=== PATIENT | male | born 1975 | race African-American/Black ===

== ENCOUNTER 2017-01-06 10:57 | Emergency (ER) | payer OTHER ==
--- NOTE | 2017-01-06 13:17 | Emergency Department Report ---
Entered by MANJINDER RODRIGUEZ, acting as scribe for CINTHIA SIGNH NP. Chief Complaint: Back Pain/Injury Stated Complaint: BACK PAIN Time Seen by Provider: 01/06/17 13:07 - HPI History of Present Illness: Patient present to the ED c/o of back pain for 2 weeks. Pain is worsened with movement. Reports urination frequency and urgency at nightt. Denies back injury , dysuria, and urinary incontinence. Reports applying ice with no relief. He notes seeing PCP 1 month ago and recieved a steroid shot that gave mild relief for about 2 weeks. NKDA. - ROS Review of Systems: All systems are negative unless stated in HPI above. - Exam Vital Signs: Vital Signs 01/06/17 12:45 Temperature 98.4 F Pulse Rate 70 Respiratory 16 Rate Blood Pressure 154/111 O2 Sat by Pulse 100 Oximetry Physical Exam: General: alert and oriented x 3 MSE screening note: Focused history and physical exam performed. Due to findings the following was ordered: 07/01 PAIN LUMBAR SAW PCP HAS CT ORTHO MD APPNT 5-3 HAD GOT STEROID INJ WORE OFF SINCE 07-07 NO MEDS AT HOME POS STR LEG LIFT BP INC W PAIN. NO HX BP ED Medical Decision Making - Medical Decision Making Patient seen by provider in triage area. An UA will be ordered for the patient. ED Disposition for MSE Condition: Stable This documentation as recorded by the scribe,MANJINDER RODRIGUEZ,accurately reflects the service I personally performed and the decisions made by me,CINTHIA ZAMORA NP.
[2017-01-06 14:35] LABS: Bilirubin,Urine NEG (Negative); Blood,Urine NEG (Negative); Ketones,Urine NEG (Negative); Leukocyte Esterase,Urine NEG (Negative); Mucus,Urine FEW /HPF; Nitrite,Urine NEG (Negative); Protein,Urine <15 mg/dL mg/dL (Negative); Urobilinogen,Urine < 2.0 mg/dL (<2.0)
[2017-01-06] MEDS ORDERED: MOTRIN PO ONE (15:16)
--- NOTE | 2017-01-06 15:20 | Emergency Department Report ---
ED Back Pain/Injury HPI - General Chief Complaint: Back Pain/Injury Stated Complaint: BACK PAIN Time Seen by Provider: 01/06/17 14:17 Source: patient Limitations: No Limitations - History of Present Illness Initial Comments: this is ae 41-year-old male presented with a chronic lower back pain that was diagnosed with spinal stenosis in May 2017. Patient presents to the emergency room now with unable to control pain. Patient describes pain as throbbing and aching. Patient manages pain with a steroid injections but stated that does not have an orthopedic doctor currently due to his insurance. Patient denies any numbness or tingling sensation in her cavities. Denies any bladder stability. Denies CP, SOB, trauma, headache. Patient stated manages back pain with his PCP and is in the process of getting a orthopedic. Patient stated that the PCP has ordered x-rays and MRI. He stated that a MRI shows spinal stenosis. Patient has no known drug allergies. Patient does not appear toxic or ill appearance. MD Complaint: back pain (chronic) -: Gradual Similar Symptoms Previously: Yes (chronic) Severity: severe Severity scale (0 -10): 10 Quality: stabbing Consistency: constant Improves With: immobilization, other (rest) Worsens With: other (steroid injection) Associated Symptoms: denies other symptoms. denies: confusion, weakness, chest pain, numbness, difficulty walking, cough, difficulty urinating, diaphoresis, incontinence, fever/chills, constipation, headaches, abdominal pain, loss of appetite, malaise, nausea/vomiting, rash, seizure, shortness of breath, syncope Treatments Prior to Arrival: NSAIDS, prescription analgesics - Related Data Previous Rx's Medication Instructions Recorded Last Taken Type Amoxicillin/K Clav Tab [Augmentin 1 tab PO Q12HR #20 tab 06/15/15 Unknown Rx 875 mg] Oxycodone HCl/Acetaminophen 1 each PO Q4-6H PRN #20 tablet 06/15/15 Unknown Rx [Percocet 10/325 mg] predniSONE [Deltasone] 20 mg PO TID #12 tab 06/15/15 Unknown Rx Naproxen [Naprosyn TAB] 500 mg PO PRN PRN #20 tablet 01/06/17 Unknown Rx Prednisone [predniSONE 5 mg (6-Day 5 mg PO .TAPER #1 tab.ds.pk 01/06/17 Unknown Rx Pack, 21 Tabs)] traMADol [Ultram 50 MG tab] 50 mg PO Q6HR PRN #15 tablet 01/06/17 Unknown Rx Allergies Allergy/AdvReac Type Severity Reaction Status Date / Time No Known Allergies Allergy Unverified 06/15/15 12:04 ED Review of Systems ROS: Stated complaint: BACK PAIN Other details as noted in HPI Constitutional: denies: chills, fever Eyes: denies: eye pain, eye discharge, vision change ENT: denies: ear pain, throat pain Respiratory: denies: cough, shortness of breath, wheezing Cardiovascular: denies: chest pain, palpitations Endocrine: no symptoms reported Gastrointestinal: denies: abdominal pain, nausea, diarrhea Genitourinary: denies: urgency, dysuria Musculoskeletal: denies: back pain, joint swelling, arthralgia Skin: denies: rash, lesions Neurological: denies: headache, weakness, paresthesias Psychiatric: denies: anxiety, depression Hematological/Lymphatic: denies: easy bleeding, easy bruising ED Past Medical Hx - Past Medical History Previous Medical History?: No - Surgical History Past Surgical History?: No - Social History Smoking Status: Never Smoker Substance Use Type: None - Medications Home Medications: Home Medications Medication Instructions Recorded Confirmed Last Taken Type Amoxicillin/K Clav Tab [Augmentin 1 tab PO Q12HR #20 tab 06/15/15 Unknown Rx 875 mg] Oxycodone HCl/Acetaminophen 1 each PO Q4-6H PRN #20 tablet 06/15/15 Unknown Rx [Percocet 10/325 mg] predniSONE [Deltasone] 20 mg PO TID #12 tab 06/15/15 Unknown Rx Naproxen [Naprosyn TAB] 500 mg PO PRN PRN #20 tablet 01/06/17 Unknown Rx Prednisone [predniSONE 5 mg (6-Day 5 mg PO .TAPER #1 tab.ds.pk 01/06/17 Unknown Rx Pack, 21 Tabs)] traMADol [Ultram 50 MG tab] 50 mg PO Q6HR PRN #15 tablet 01/06/17 Unknown Rx ED Physical Exam - General Limitations: No Limitations General appearance: alert, in no apparent distress - Head Head exam: Present: atraumatic, normocephalic, normal inspection - Eye Eye exam: Present: normal appearance, PERRL, EOMI - ENT ENT exam: Present: normal exam, normal orophraynx, mucous membranes moist, TM's normal bilaterally - Neck Neck exam: Present: normal inspection, full ROM. Absent: tenderness, lymphadenopathy - Respiratory Respiratory exam: Present: normal lung sounds bilaterally. Absent: respiratory distress - Cardiovascular Cardiovascular Exam: Present: regular rate, normal rhythm. Absent: systolic murmur, diastolic murmur, rubs, gallop - GI/Abdominal GI/Abdominal exam: Present: soft, normal bowel sounds. Absent: distended, tenderness, guarding, rebound, rigid, hyperactive bowel sounds, hypoactive bowel sounds, organomegaly - Rectal Rectal exam: Present: deferred - Extremities Exam Extremities exam: Present: normal inspection, full ROM, normal capillary refill. Absent: tenderness, pedal edema, joint swelling, calf tenderness - Back Exam Back exam: Present: normal inspection, full ROM, tenderness. Absent: CVA tenderness (R), CVA tenderness (L), muscle spasm, paraspinal tenderness, vertebral tenderness, rash noted - Expanded Back Exam Expanded Back exam: Absent: saddle anesthesia Back exam: Negative Straight Leg Raising: Right, Left - Neurological Exam Neurological exam: Present: alert, oriented X3, CN II-XII intact - Psychiatric Psychiatric exam: Present: normal affect, normal mood - Skin Skin exam: Present: warm, dry, intact, normal color. Absent: rash ED Course Vital Signs 01/06/17 01/06/17 01/06/17 12:45 15:20 15:38 Temperature 98.4 F Pulse Rate 70 Respiratory 16 18 Rate Blood Pressure 154/111 Blood Pressure 120/80 [Left] O2 Sat by Pulse 100 Oximetry 01/06/17 15:46 Temperature 97.9 F Pulse Rate 71 Respiratory 18 Rate Blood Pressure Blood Pressure 143/94 [Left] O2 Sat by Pulse 100 Oximetry Vital Signs 01/06/17 01/06/17 12:45 15:20 Temperature 98.4 F Pulse Rate 70 Respiratory 16 Rate Blood Pressure 154/111 Blood Pressure 120/80 [Left] O2 Sat by Pulse 100 Oximetry - Reevaluation(s) Reevaluation #1: 01/06/17 15:39 Solu-Medrol IM. Patient tolerated well. No signs of distress noted. Reevaluation #2: 01/06/17 15:48 Patient stated back pain level is now a 6/10. "Feel much better" ED Medical Decision Making - Medical Decision Making Ed course: 41 year old male presents with chronic lower back pain 1- Solu-Medrol IM. Patient tolerated well with no signs of any distress 2- ibuprofen 600 mg by mouth. 3-instructed the patient to follow up with the orthopedic doctor 3-5 days. 4- at this time the patient is nontoxic in appearance. 5- understands discharge plan and agrees. No further questions noted. Critical care attestation.: If time is entered above; I have spent that time in minutes in the direct care of this critically ill patient, excluding procedure time. ED Disposition Clinical Impression: Back pain, chronic Qualifiers: Back pain location: back pain in other location Qualified Code(s): M54.9 - Dorsalgia, unspecified Spinal stenosis Qualifiers: Spinal region: unspecified Qualified Code(s): M48.00 - Spinal stenosis, site unspecified Disposition: DISCHARGED TO HOME OR SELFCARE Is pt being admited?: No Does the pt Need Aspirin: No Condition: Stable Instructions: Corticosteroids (By mouth), Naproxen (By mouth), Tramadol (By mouth), Back Pain (ED) Additional Instructions: Please follow up with your primary care doctor in 3-5 days. Please see an orthopedic doctor in 3-5 days. Did not take tramadol while using any heavy machinery. If symptoms worsen such as bladder stability, chest pain, shortness of breath, numbness or tingling, nausea vomiting's report back to emergency room. Please take naproxen as ordered, if no relief please take tramadol as prescribed Is taking prednisone Enrique as prescribed. Prescriptions: Naproxen [Naprosyn TAB] 500 mg PO PRN PRN #20 tablet PRN Reason: Pain Prednisone [predniSONE 5 mg (6-Day Pack, 21 Tabs)] 5 mg PO .TAPER #1 tab.ds.pk traMADol [Ultram 50 MG tab] 50 mg PO Q6HR PRN #15 tablet PRN Reason: Pain Referrals: PRIMARY CARE, [Primary Care Provider] - 3-5 Days [facility] [Outside] - 3-5 Days [facility] [Outside] - 3-5 Days SAIRA BENÍTEZ MD [Staff Physician] - 3-5 Days Forms: Work/School Release Form(ED)
[2017-01-06 15:47] VITALS: BP 143/94
== END 2017-01-06 15:56 | disposition home or self-care (01) ==
LOC: ED 10:57
DX: M54.9 Dorsalgia, unspecified (principal); M48.00 Spinal stenosis, site unspecified; G89.29 Other chronic pain
CPT/HCPCS: 81001; 96372; 99283; J2920

== ENCOUNTER 2018-12-28 10:19 | Emergency (ER) | payer OTHER ==
[2018-12-28 10:40] VITALS: BP 133/106
[2018-12-28] MEDS ORDERED: DELTASONE PO ONE (13:36)
[2018-12-28] MEDS ORDERED: TORADOL IM ONE (13:36)
--- NOTE | 2018-12-28 13:39 | Emergency Department Report ---
ED Back Pain/Injury HPI - General Chief Complaint: Back Pain/Injury Stated Complaint: LOWER BACK PAIN Time Seen by Provider: 12/28/18 12:35 Source: patient Limitations: No Limitations - History of Present Illness Initial Comments: Patient is a 43-year-old male with history of chronic back pain who presents to ED complaining of worsening lower back pain times this month. Patient states in 2012 he had an MRI done and has injections steroid O by orthopedic doctor. Patient states he got better and states that in the past couple of years the pain has gotten worse. Patient denies any recent injury or trauma falls, dysuria,. MD Complaint: back pain -: month(s) Similar Symptoms Previously: Yes Quality: tingling Consistency: intermittent Worsens With: movement, sitting upright Associated Symptoms: denies: confusion, weakness, numbness, incontinence, fever/chills, nausea/vomiting, seizure - Related Data Previous Rx's Medication Instructions Recorded Last Taken Type Amoxicillin/K Clav Tab [Augmentin 1 tab PO Q12HR #20 tab 06/15/15 Unknown Rx 875 mg] Oxycodone HCl/Acetaminophen 1 each PO Q4-6H PRN #20 tablet 06/15/15 Unknown Rx [Percocet 10/325 mg] predniSONE [Deltasone] 20 mg PO TID #12 tab 06/15/15 Unknown Rx Naproxen [Naprosyn TAB] 500 mg PO PRN PRN #20 tablet 01/06/17 Unknown Rx Prednisone [predniSONE 5 mg (6-Day 5 mg PO .TAPER #1 tab.ds.pk 01/06/17 Unknown Rx Pack, 21 Tabs)] traMADol [Ultram 50 MG tab] 50 mg PO Q6HR PRN #15 tablet 12/28/18 Unknown Rx Allergies Allergy/AdvReac Type Severity Reaction Status Date / Time No Known Allergies Allergy Unverified 06/15/15 12:04 ED Review of Systems ROS: Stated complaint: LOWER BACK PAIN Other details as noted in HPI Comment: All other systems reviewed and negative ED Past Medical Hx - Past Medical History Previous Medical History?: Yes Hx Hypertension: Yes - Surgical History Past Surgical History?: No - Social History Smoking Status: Never Smoker Substance Use Type: None - Medications Home Medications: Home Medications Medication Instructions Recorded Confirmed Last Taken Type Amoxicillin/K Clav Tab [Augmentin 1 tab PO Q12HR #20 tab 06/15/15 Unknown Rx 875 mg] Oxycodone HCl/Acetaminophen 1 each PO Q4-6H PRN #20 tablet 06/15/15 Unknown Rx [Percocet 10/325 mg] predniSONE [Deltasone] 20 mg PO TID #12 tab 06/15/15 Unknown Rx Naproxen [Naprosyn TAB] 500 mg PO PRN PRN #20 tablet 01/06/17 Unknown Rx Prednisone [predniSONE 5 mg (6-Day 5 mg PO .TAPER #1 tab.ds.pk 01/06/17 Unknown Rx Pack, 21 Tabs)] traMADol [Ultram 50 MG tab] 50 mg PO Q6HR PRN #15 tablet 12/28/18 Unknown Rx ED Physical Exam - General Limitations: No Limitations General appearance: alert, in no apparent distress - Head Head exam: Present: atraumatic, normocephalic - Eye Eye exam: Present: normal appearance - ENT ENT exam: Present: mucous membranes moist - Neck Neck exam: Present: normal inspection - Respiratory Respiratory exam: Present: normal lung sounds bilaterally. Absent: respiratory distress - Cardiovascular Cardiovascular Exam: Present: regular rate, normal rhythm. Absent: systolic murmur, diastolic murmur, rubs, gallop - GI/Abdominal GI/Abdominal exam: Present: soft, normal bowel sounds - Rectal Rectal exam: Present: deferred - Extremities Exam Extremities exam: Present: normal inspection - Back Exam Back exam: Present: normal inspection - Neurological Exam Neurological exam: Present: alert, oriented X3 - Psychiatric Psychiatric exam: Present: normal affect, normal mood - Skin Skin exam: Present: warm, dry, intact, normal color. Absent: rash ED Course Vital Signs 12/28/18 12/28/18 12/28/18 10:40 10:43 13:47 Temperature 98.7 F 98.7 F Pulse Rate 98 H 98 H Respiratory 16 16 18 Rate Blood Pressure 133/106 Blood Pressure 133/106 [Left] O2 Sat by Pulse 100 99 Oximetry 12/28/18 14:06 Temperature Pulse Rate Respiratory 18 Rate Blood Pressure Blood Pressure [Left] O2 Sat by Pulse Oximetry ED Medical Decision Making - Medical Decision Making 43-year-old male presents with lumbar radiculopathy. Patient is in no acute distress. Discussed follow-up with orthopedics for MRI. Discussed MRI could not be done in the ED for chronic pain. Patient received Toradol 60 mg of prednisone ED Referrals given. Critical care attestation.: If time is entered above; I have spent that time in minutes in the direct care of this critically ill patient, excluding procedure time. ED Disposition Clinical Impression: Lumbar radiculopathy Disposition: TO HOME OR SELFCARE Is pt being admited?: No Does the pt Need Aspirin: No Condition: Stable Instructions: Lumbar Radiculopathy (ED), Arthralgia (ED), Chronic Back Pain (ED) Additional Instructions: Make sure to follow up with the primary care physician as discussed. Take all your medications as you've been prescribed. If you have any worsening symptoms or develop new symptoms please return to ED immediately. Prescriptions: traMADol [Ultram 50 MG tab] 50 mg PO Q6HR PRN #15 tablet PRN Reason: Pain Referrals: [facility] [Other] - 3-5 Days SAIRA BENÍTEZ MD [Staff Physician] - 3-5 Days Forms: Work/School Release Form Time of Disposition: 13:57
== END 2018-12-28 14:03 | disposition home or self-care (01) ==
LOC: ED 10:19
DX: M54.16 Radiculopathy, lumbar region (principal); I10 Essential (primary) hypertension
CPT/HCPCS: 96372; 99282; J1885; J7512